=== PATIENT | female | born 1990 | race Caucasian/White ===

== ENCOUNTER 2021-09-05 22:21 | Emergency (ER) | payer BC ==
[~2021-09-05] VITALS: Ht 154.9 cm; Wt 75.0 kg
[2021-09-05 22:40] VITALS: BP 125/81
--- NOTE | 2021-09-05 22:57 | PHYS DOC ---
Past Medical History Past Medical History: Asthma (VENTURA MCDANIEL) Past Surgical History: No Surgical History (VENTURA MCDANIEL) Smoking Status: Never Smoker Alcohol Use: Occasionally (VENTURA MCDANIEL) General Adult EDM: Chief Complaint: SHORTNESS OF BREATH HPI: HPI: Patient is a 31 year old male with history of asthma who presents with shortness of breath. Patient states that her shortness of breath had gradual onset starting about 1 week ago, but has been significantly worse since yesterday. She has used her inhaler several times today that significant relief. Patient reports she had a COVID exposure 2 weeks ago. She was tested for COVID the next day, which came back negative. She also did a rapid test at home today due to increasing shortness of breath which was also negative. Patient reports intermittent cough with sputum production. She has no other complaints at this time. (VENTURA MCDANIEL) Review of Systems: Review of Systems: ROS negative or noncontributory except as mentioned in HPI. (VENTURA MCDANIEL) Heart Score: C/O Chest Pain: No (VENTURA MCDANIEL) Physical Exam: PE: Constitutional: Well developed, well nourished, no acute distress, non-toxic appearance. HENT: Normocephalic, atraumatic, bilateral external ears normal, nose right- sided epistaxis. Eyes: EOMI, conjunctiva normal, no discharge. Neck: Normal range of motion, no stridor. Cardiovascular: Elevated heart rate with regular rhythm, no murmur murmur s/rubs/gallops. Lungs & Thorax: Diffuse expiratory wheezing, no rales or rhonchi. Skin: Warm, dry, no erythema, no rash, no cyanosis. Neurologic: Alert and oriented x4, steady and symmetrical gait, no focal deficits noted. (VENTURA MCDANIEL) Current Patient Data: Labs: Laboratory Tests Test 09/05/21 23:00 Influenza Type A Antigen Positive (NEGATIVE) Influenza Type B Antigen Negative (NEGATIVE) SARS-CoV-2 Antigen (Rapid) Positive (NEGATIVE) Vital Signs: Vital Signs Date Time Temp Pulse Resp B/P (MAP) Pulse Ox O2 Delivery O2 Flow Rate FiO2 09/05/21 22:40 98.2 118 18 125/81 (96) 94 98.2 09/05/21 22:27 97.9 112 28 124/80 (95) 92 Room Air 97.9 Patient reports albuterol use prior to arrival. (VENTURA MCDANIEL) Radiology/Procedures: Radiology/Procedures: PROCEDURE: CHEST AP ONLY XR CHEST 1V Clinical Indication: Reason: SOB, cough / Spl. Instructions: / History: Comparison: None. Findings: The cardiomediastinal silhouette is normal. Lungs are clear. There is no pneumothorax. No pleural effusion is appreciated. No acute bone abnormality. IMPRESSION: No acute cardiopulmonary process. Electronically signed by: Erick Sarkar MD (09/05/2021 11:15 PM) [facility] (VENTURA MCDANIEL) Course & Med Decision Making: Course & Med Decision Making Pertinent Labs and Imaging studies reviewed. (See chart for details) Patient is a 31-year-old female with history of asthma who presents today with asthma exacerbation. Work-up today will include chest x-ray, as patient has complaint of cough and sputum production and PCR swab for COVID-19, as she has yet to have one performed status post COVID exposure. DuoNeb breathing treatment ordered. Respiratory therapy called to the emergency department stating they are no longer performing breathing treatments on persons under investigation for COVID- 19, as many of the staff are becoming ill. Instead, prescription will be sent to patient's pharmacy of choice for DuoNeb vials for her nebulizer at home. Additionally, I will prescribe a 5-day course of prednisone for future exacerbation. Patient understands and is agreeable to discharge plan. (VENTURA MCDANIEL) Course & Med Decision Making Patients Care and treatment plan provided by ER Nurse Practitioner. I was available for consult. Patient's chart reviewed. (JUVENTINO GUTHRIE DO) Karon Disclaimer: Karon Disclaimer: This electronic medical record was generated, in whole or in part, using a voice recognition dictation system. (VENTURA MCDANIEL) Departure Departure Impression: Primary Impression: Asthma exacerbation Qualified Codes: J45.901 - Unspecified asthma with (acute) exacerbation Additional Impressions: Influenza A COVID-19 virus infection Disposition: HOME / SELF CARE / HOMELESS Condition: STABLE Referrals: UNKNOWN PCP NAME (PCP) Patient Instructions: Asthma, Adult, [id number] Additional Instructions: Follow the following supportive treatment measures: - Cool mist humidifier with plain water at bedside while you sleep - Alternate ibuprofen and acetaminophen every four hours for body aches/fever/headache - Breathing treatments as needed If antibiotics were prescribed, take them as directed. You have been tested for or diagnosed with COVID-19 infection. It is an infection caused by a new type of coronavirus. COVID-19 will cause cold-like or mild flu symptoms in most. It can cause more severe symptoms like problems breathing in some. There is no treatment for COVID-19. The body will clear the infection over time. Self-care will help to ease discomfort. Steps to Take: - Rest as needed. - Choose healthy foods including fruits and vegetables. Drink water throughout the day. - Get plenty of sleep each night. - If you smoke, try to quit. It may ease breathing. - Avoid alcohol. - Keep Others Healthy - The virus can spread to others. Droplets are released every time you sneeze o r cough. The droplets can get into the mouth, nose, or eyes of people near you and lead to infection. To lower the chances of spreading COVID-19 to others: Stay at home until your doctor has said it is safe to leave. If you tested positive this will mean staying isolated until both of the following are true: - At least 10 days have passed since the start of illness. - You are free of fever for at least 72 hours without the use of medicine. During this time: - Avoid public areas, events, or transportation. Do not return to work or school until your doctor has said it is safe to do so. - Call ahead if you need to go to a medical center. Let them know you may have COVID-19. It will help them guide you where to go. They may also ask you to wear a facemask when you come to the office. - If you call for emergency medical services, let them know you may have COVID- 19. While at home: - Try to avoid close contact with others. Stay about 6 feet away. - If possible, spend most of your time in a separate room from others. - Use a face mask if you will be in close contact with others such as sharing a room or vehicle. - Have someone wipe down common surfaces in the home. Use household claims examiner every day on areas like doorknobs, counters, or sinks. - Cough or sneeze into a tissue. Throw the tissue away right after use. If a tissue is not available, cough or sneeze into your elbow. - Wash your hands often. Wash them after sneezing or coughing. Use soap and water and wash or at least 20 seconds. Alcohol based hand cleaner industrial can be used if soap and water is not available. - Do not prepare food for others. Avoid sharing personal items like forks, spoons, or toothbrushes. - Avoid close contact with pets while you are sick. There is no evidence of the virus passing to pets. This is a safety step until more is known about this virus. - Isolation can be frustrating. Social interaction can help. Keep in touch with friends and family through phone and tech options. You can still interact with others in your home, just keep a safe distance of about 6 feet. Follow-up: - Your doctors office will check in with you to see if there are any changes in your health. - You may be asked to keep track of symptoms to share with them. They will also let you know when you are clear to be in public again. Contact your doctor if your recovery is not going as you expect. Get emergency care if you have problems such as: - Trouble breathing with oxygen saturation <90% - Nonstop chest pain or pressure - Changes in awareness, confusion, or problems waking - Lips or face have bluish color - Worsening of symptoms If you think you have an emergency, call for emergency medical services right away. As taken from [facility] Ipratropium/Albuterol Sulfate (DUONEB 0.5-3(2.5) MG/3 ML) 3 Ml Ampul.neb 3 ML NEB QID, #2 EACH Prov: VENTURA MCDANIEL 09/05/21 Prednisone (PREDNISONE) 50 Mg Tablet 1 TAB PO DAILY for 5 Days, #5 TAB Prov: VENTURA MCDANIEL 09/05/21 Ipratropium/Albuterol Sulfate (DUONEB 0.5-3(2.5) MG/3 ML) 3 Ml Ampul.neb 3 ML NEB PRN Q6-8HRS PRN for WHEEZING, #10 EACH Prov: VENTURA MCDANIEL 09/05/21 VENTURA MCDANIEL Sep 05, 2021 22:57 JUVENTINO GUTHRIE I DO Sep 06, 2021 03:18
[2021-09-05] MEDS ORDERED: DEXAMETHASONE SOD PHOS 4 MG/ML VIAL IVP ONE (23:00)
[2021-09-05] MEDS ORDERED: IPRATRPIUM/ALBUTEROL 0.5/2.5MG 3 ML NEBU. NEB ONE (23:00)
[2021-09-05] MEDS ORDERED: DEXAMETHASONE SOD PHOS 20 MG/5 ML VIAL. ONE (23:14)
[2021-09-05] MEDS ORDERED: DEXAMETHASONE SOD PHOS 4 MG/ML VIAL IM ONE (23:15)
--- NOTE | 2021-09-05 23:17 | RAD ---
XR CHEST 1V Clinical Indication: Reason: SOB, cough / Spl. Instructions: / History: Comparison: None. Findings: The cardiomediastinal silhouette is normal. Lungs are clear. There is no pneumothorax. No pleural eff usion is appreciated. No acute bone abnormality. IMPRESSION: No acute cardiopulmonary process. Electronically signed by: Erick Sarkar MD (09/05/2021 11:15 PM) [facility]
[2021-09-05] MEDS ORDERED: IPRATROPIUM/ALBUTEROL 20/100mcg/INH INHALER. INH SCH (23:19)
[2021-09-05] MEDS ORDERED: PRED50TA PO (23:19)
[2021-09-05] MEDS ORDERED: IPRA3AMP29 NEB ×2 (23:19→23:22)
[2021-09-05 23:20] LABS: INFLUENZA B PATIENT NEGATIVE (NEGATIVE)
[2021-09-05 23:25] LABS: INFLUENZA A PATIENT POSITIVE (NEGATIVE)
== END 2021-09-05 23:28 | disposition home or self-care (01) ==
LOC: ER 22:21
DX: U07.1 COVID-19 (principal); J45.901 Unspecified asthma with (acute) exacerbation; J10.1 Influenza due to other identified influenza virus with other respiratory manifestations
CPT/HCPCS: 71045; 87426; 87428; 96372; 99284; J1100